=== PATIENT | female | born 1970 | race Two or more races ===

== ENCOUNTER 2019-06-02 08:16 | Emergency (ER) | payer OTHER ==
[~2019-06-02] VITALS: Ht 162.6 cm; Wt 70.0 kg
[2019-06-02] MEDS ORDERED: ONDANSETRON HCL 4MG/2ML INJ IV STA (09:29)
[2019-06-02] MEDS ORDERED: MORPHINE SULFATE 4 MG/ML CPJ (NOT FOR IM USE) IV STA (09:29)
[2019-06-02] MEDS ORDERED: SODIUM CHLORIDE 0.9% 1,000 ML IV ONE (09:29)
[2019-06-02] MEDS ORDERED: DICYCLOMINE HCL 10MG/ML 2ML AMP IM ONE (09:30)
[2019-06-02 09:35] LABS: BASOPHILS % 0.4 % (0.0-2.0); EOSINOPHILS % 0.9 % (0.0-5.0); HEMATOCRIT. 42.2 % (36.0-48.0); HEMOGLOBIN. 14.1 g/dL (12.0-16.0); LYMPHOCYTES % 24.2 % (20.0-50.0); MEAN CORPUSCULAR VOLUME 86.7 fL (81.0-99.0); MEAN PLATELET VOLUME 9.6 fl (7.4-10.4); MONOCYTES % 7.1 % (2.0-8.0); NEUTROPHILS % 67.4 % (40.0-76.0); PLATELET 216 x1000/uL (130-400); RED BLOOD CELL COUNT 4.87 mill/uL (4.2-5.4); RED CELL DISTRIBUTION WIDTH 14.4 % (11.6-14.6)
[2019-06-02 09:38] LABS: CHLORIDE 107 mEq/L (98-107)
[2019-06-02] MEDS ORDERED: DICYCLOMINE HCL 10MG/ML 2ML AMP IM NR (09:45)
[2019-06-02] MEDS ORDERED: IOHEXOL-300 100 ML BOTTLE ONE (10:54)
[2019-06-02 11:13] LABS: CLARITY URINE CLEAR (CLEAR); COLOR URINE YELLOW (YELLOW); KETONES URINE NEGATIVE (NEGATIVE); LEUKOCYTE ESTERASE URINE TRACE (NEGATIVE); NITRITE URINE NEGATIVE (NEGATIVE); OCCULT BLOOD URINE 3+ (NEGATIVE); PROTEIN URINE NEGATIVE (NEGATIVE); SPECIFIC GRAVITY URINE 1.037 (1.005-1.030); UROBILINOGEN URINE 0.2 E.U./dL (0.2-1.0)
[2019-06-02] MEDS ORDERED: METOCLOPRAMIDE HCL 10MG/2ML VIAL IV ONE (11:45)
[2019-06-02] MEDS ORDERED: NA PHOS,M-B/NA PHOS,DI-BA ENEMA 118ML PR ONE ×2 (11:45→12:45)
[2019-06-02 13:43] VITALS: BP 118/72
== END 2019-06-02 13:46 | disposition home or self-care (01) ==
LOC: ER 08:16
DX: R10.9 Unspecified abdominal pain (principal); K59.00 Constipation, unspecified; J44.9 Chronic obstructive pulmonary disease, unspecified; F20.9 Schizophrenia, unspecified; M41.9 Scoliosis, unspecified; F31.9 Bipolar disorder, unspecified; Z85.3 Personal history of malignant neoplasm of breast; Z98.890 Other specified postprocedural states
CPT/HCPCS: 36415; 74177; 80053; 81003; 83690; 85025; 96361; 96372; 96374; 96375; 99284; J0500; J2270; J2405; J2765; J7030; Q9967